=== PATIENT | male | born 1985 | race Caucasian/White ===

== ENCOUNTER 2020-12-17 21:03 | Emergency (ER) | payer BC, SELFPAY ==
--- NOTE | ~2020-12-17 | XR_ITS ---
EXAMINATION: XR knee LT 3V DATE: 12/17/2020 21:31 INDICATION: Left knee pain and laceration Post trauma TECHNIQUE: Anteroposterior, oblique and crosstable lateral views of the left knee were obtained COMPARISON: None. FINDINGS: Alignment is normal. No fracture. No joint effusion/layering lipohemarthrosis. Small enthesophyte at the proximal patella. There is soft tissue thickening in the region of the tibial insertion of the d istal patellar tendon.. IMPRESSION: 1. No left knee joint effusion or osseous abnormalities. Reviewed, dictated and finalized at location A.
[2020-12-17 21:04] VITALS: BP 143/95; PULSE 68; RESP 18; TEMP 35.9; O2SAT 99
--- NOTE | 2020-12-17 21:14 | ED.GENADULT ---
HPI - General Adult General Chief complaint: Extremity Injury, Lower Stated complaint: left knee injury Time Seen by Provider: 12/17/20 21:09 Source: patient Mode of arrival: ambulatory Limitations: no limitations History of Present Illness HPI narrative: Patient presents for evaluation of left knee pain. He indicates he was climbing up some boards just prior to arrival when he slipped and hit his left knee against a 2 x 4. He now has a laceration to the anterior aspect of the left knee. Reports minimal pain in the affected area, rated 3 on a scale of 1-10, without descriptive quality. No loss of range of motion. He is not diabetic. Date of last tetanus greater than 10 years ago. No additional complaints or concerns. Related Data Allergies Allergy/AdvReac Type Severity Reaction Status Date / Time No Known Allergies Allergy Unverified 02/02/17 03:53 Review of Systems Review of Systems: Narrative: CONSTITUTIONAL: Denies fever, chills, or sweats. EYES: Denies visual changes, redness, or discharge. ENT: Denies rhinorrhea, congestion, sore throat, or otalgia. CARDIOVASCULAR: Denies chest pain, palpitations, or edema. RESPIRATORY: Denies cough or dyspnea. GASTROINTESTINAL: Denies abdominal pain, nausea, vomiting, or diarrhea. GENITOURINARY: Denies dysuria or hematuria. SKIN: Reports laceration to the anterior aspect of the left knee denies rash or itching. MUSCULOSKELETAL: Reports pain in the left knee. Denies back pain or myalgia. NEUROLOGIC: Denies headache, numbness, dizziness, or weakness. PSYCHIATRIC: Denies anxiety or depression. FOR[facility]LY [facility], [facility] Past Medical History Medical History (Updated 12/17/20 @ 22:32 by Jones Zuñiga, BRANDON, ) No pertinent past medical history Surgical History Surgical History History of adenoidectomy History of vasectomy Family History Family History Mother No pertinent past medical history Social History Social History (Updated 12/17/20 @ 21:16 by BRANDON Easton, ) Smoking status: Never smoker Alcohol intake: current Alcohol use details: social Substance use: never Living arrangements: with family Gender identity (if verbalized by the patient): Male Sexual Orientation (if Verbalized by the Patient): Straight or Heterosexual Spiritual care concerns: No Exam Narrative: Exam Narrative: GENERAL: Well-appearing, well-nourished, and in no acute distress. HEAD: Normocephalic, atraumatic. EYES: PERRLA and EOMI. ENT: Nares clear, no rhinorrhea or epistaxis. Mucous membranes moist. Oropharynx without tonsillar hypertrophy exudate or other lesions. Bilateral TMs pearly frazier nonbulging NECK: Supple. No adenopathy or masses. No carotid bruits or JVD CHEST: Clear to auscultation. No respiratory distress. No wheezes rales or rhonchi HEART: Regular rate and rhythm. No murmur heard. Normal peripheral pulses. ABDOMEN: Soft, nontender, nondistended, normal active bowel sounds. EXTREMITIES: Normal range of motion. No edema. SKIN: There is an approximately 4.5cm laceration in flap formation to anterior aspect of left lower extremity just inferior to the knee. This is covered with band-aid which was removed for evaluation. There is small amount of sanguinous drainage noted. Warm, dry, no rash. NEURO: No focal deficits. Alert and oriented x3. PSYCH: Normal mood and affect. Course Course Emergency Course: 35-year-old male who presented with laceration to the left lower extremity. X-ray was negative for fracture. Wound was thoroughly irrigated and the wound was closed with 8 sutures. Patient tolerated well. He declined analgesics upon discharge. Advise follow-up outpatient for further evaluation and treatment and return for any worsening symptoms. Vital Signs Vital signs: Vital Signs Temperature 35.9 C L 12/17/20 21:04 Pulse Rate 68 12/17/20
[2020-12-17] MEDS: LIDOCAINE HCL 1% LOCAL INJ 20 ML VIAL 10 ML INFILTRATE (21:38)
[2020-12-17] MEDS: TETANUS,DIPHTHERIA,AC PERTUSSIS ADULT (0.5 ML) BOOSTRIX IM (21:39)
[2020-12-17] MEDS: NEOMYCIN/POLYMYXIN/BACITRACIN OINTMENT PACKET 1 PACKET (22:37)
[2020-12-17 22:40] VITALS: BP 132/78; PULSE 62; RESP 16
== END 2020-12-17 22:40 | disposition home or self-care (01) ==
PROVIDERS: Emergency Provider Nurse Practitioner
DX: S81.012A Laceration without foreign body, left knee, initial encounter (principal); Z23 Encounter for immunization; W01.198A Fall on same level from slipping, tripping and stumbling with subsequent striking against other object, initial encounter
CPT/HCPCS: 12002; 73562; 90471; 90715; 99283